=== PATIENT | male | born 1970 | race Two or more races ===

== ENCOUNTER 2023-10-16 19:19 | Inpatient (IN) | payer BC, OTHER ==
[~2023-10-16] VITALS: Ht 182.9 cm; Wt 96.3 kg
[2023-10-16] MEDS ORDERED: KETOROLAC TROMETHAMINE 15 MG/ML VIAL ONE (19:58)
[2023-10-16] MEDS: KETOROLAC TROMETHAMINE 15 MG/ML VIAL IM ONE (19:59)
[2023-10-16 21:18] LABS: BASOPHILS % (AUTO) 0.4 % (0.0-2.0); EOSINOPHILS # (AUTO) 0.1 K/uL (0.0-0.7); EOSINOPHILS % (AUTO) 0.7 % (0.0-6.0); HEMATOCRIT 43 % (39-51); HEMOGLOBIN 14.6 g/dL (13.5-17.5); LYMPHOCYTES # (AUTO) 0.8 K/uL (0.8-4.8); LYMPHOCYTES % (AUTO) 7.3 % (20.0-44.0); MEAN CORPUSCULAR HEMOGLOBIN 31 PG (26.0-33.0); MEAN CORPUSCULAR HGB CONC 34 g/dl (31.0-36.0); MEAN CORPUSCULAR VOLUME 91 fL (80-96); MONOCYTES # (AUTO) 0.3 K/uL (0.1-1.30); MONOCYTES % (AUTO) 2.9 % (2.0-12.0); NEUTROPHILS # (AUTO) 10.2 K/uL (1.8-8.9); NEUTROPHILS % (AUTO) 88.7 % (43.0-81.0); PLATELET COUNT (AUTO) 227 K/uL (150-450); RED BLOOD CELL COUNT(AUTO) 4.75 MIL/uL (4.5-6.0); RED CELL DISTRIBUTION WIDTH 12.9 % (11.5-15.0); WHITE BLOOD COUNT (AUTO) 11.5 K/uL (4.3-11.0)
[2023-10-16 21:25] LABS: CALCIUM, SERUM 8.8 mg/dL (8.5-10.1); CREATININE 1.1 mg/dL (0.6-1.3); POTASSIUM 4.1 mmol/L (3.5-5.1)
[2023-10-16 21:44] LABS: INR 1.02 (0.91-1.10); PARTIAL THROMBOPLASTIN TIME 22.5 SEC (24.3-34.3); PROTHROMBIN TIME 10.5 SECS (9.2-11.1)
[2023-10-16] MEDS ORDERED: MORPHINE SULFATE INJ 4 MG/ML DISP.SYRIN ONE (22:09)
[2023-10-16] MEDS: MORPHINE SULFATE INJ 2 MG/ML DISP.SYRIN IV ONE (22:13)
[2023-10-16] MEDS ORDERED: ONDANSETRON HCL/PF 4 MG/2 ML VIAL IVP PRN (22:30)
[2023-10-16 23:00] VITALS: BP 125/74; TEMP 98.8; O2SAT 96
[2023-10-16 23:50] VITALS: BP 125/74; TEMP 98.8; O2SAT 96
[2023-10-16] MEDS: IV D5/0.45 NACL 1,000 ML IV PRN (23:50)
[2023-10-17] MEDS: MORPHINE SULFATE INJ 4 MG/ML DISP.SYRIN IV PRN (06:07)
[2023-10-17 06:55] LABS: BASOPHILS % (AUTO) 0.2 % (0.0-2.0); EOSINOPHILS % (AUTO) 0.5 % (0.0-6.0); HEMATOCRIT 40 % (39-51); HEMOGLOBIN 13.6 g/dL (13.5-17.5); LYMPHOCYTES # (AUTO) 0.8 K/uL (0.8-4.8); LYMPHOCYTES % (AUTO) 9.1 % (20.0-44.0); MEAN CORPUSCULAR HEMOGLOBIN 31 PG (26.0-33.0); MEAN CORPUSCULAR HGB CONC 35 g/dl (31.0-36.0); MEAN CORPUSCULAR VOLUME 91 fL (80-96); MONOCYTES # (AUTO) 0.7 K/uL (0.1-1.30); MONOCYTES % (AUTO) 7.1 % (2.0-12.0); NEUTROPHILS # (AUTO) 7.8 K/uL (1.8-8.9); NEUTROPHILS % (AUTO) 83.1 % (43.0-81.0); PLATELET COUNT (AUTO) 216 K/uL (150-450); RED BLOOD CELL COUNT(AUTO) 4.36 MIL/uL (4.5-6.0); RED CELL DISTRIBUTION WIDTH 13.2 % (11.5-15.0); WHITE BLOOD COUNT (AUTO) 9.3 K/uL (4.3-11.0)
[2023-10-17 07:00] VITALS: BP 131/82; TEMP 99.7; O2SAT 95
[2023-10-17 07:05] LABS: THYROID STIMULATING HORMONE 0.87 uIU/mL (0.358-3.74)
[2023-10-17 07:17] LABS: CALCIUM, SERUM 8.8 mg/dL (8.5-10.1); CREATININE 1.1 mg/dL (0.6-1.3); MAGNESIUM 1.8 mg/dL (1.8-2.4); POTASSIUM 3.9 mmol/L (3.5-5.1)
[2023-10-17] MEDS: PANTOPRAZOLE 40 MG VIAL IV SCH (09:19)
[2023-10-17 16:00] VITALS: BP 134/87; TEMP 98.6; O2SAT 96
[2023-10-17 20:00] VITALS: BP 127/87; TEMP 98.8; O2SAT 98
[2023-10-17] MEDS: HYDROCODONE/APAP 5/325MG TABLET PO ONE (20:19)
[2023-10-17] MEDS: ENOXAPARIN SODIUM 40 MG/0.4 ML DISP.SYRIN SQ SCH (20:32)
[2023-10-17] MEDS ORDERED: ENOXAPARIN SODIUM 40 MG/0.4 ML DISP.SYRIN SQ SCH (21:00)
[2023-10-18 06:28] LABS: BASOPHILS % (AUTO) 0.3 % (0.0-2.0); EOSINOPHILS # (AUTO) 0.1 K/uL (0.0-0.7); EOSINOPHILS % (AUTO) 1.3 % (0.0-6.0); HEMATOCRIT 39 % (39-51); HEMOGLOBIN 13.5 g/dL (13.5-17.5); LYMPHOCYTES # (AUTO) 1.1 K/uL (0.8-4.8); LYMPHOCYTES % (AUTO) 11.8 % (20.0-44.0); MEAN CORPUSCULAR HEMOGLOBIN 31 PG (26.0-33.0); MEAN CORPUSCULAR HGB CONC 34 g/dl (31.0-36.0); MEAN CORPUSCULAR VOLUME 90 fL (80-96); MONOCYTES # (AUTO) 0.7 K/uL (0.1-1.30); MONOCYTES % (AUTO) 7.6 % (2.0-12.0); NEUTROPHILS # (AUTO) 7.3 K/uL (1.8-8.9); PLATELET COUNT (AUTO) 188 K/uL (150-450); RED BLOOD CELL COUNT(AUTO) 4.36 MIL/uL (4.5-6.0); RED CELL DISTRIBUTION WIDTH 13.2 % (11.5-15.0); WHITE BLOOD COUNT (AUTO) 9.2 K/uL (4.3-11.0)
[2023-10-18 06:45] LABS: CALCIUM, SERUM 8.2 mg/dL (8.5-10.1); POTASSIUM 3.8 mmol/L (3.5-5.1)
[2023-10-18 08:00] VITALS: BP 117/72; TEMP 98.4; O2SAT 97
[2023-10-18] MEDS ORDERED: VANCOMYCIN 1 GM VIAL ONE (09:27)
[2023-10-18] MEDS ORDERED: BUPIVACAINE 0.25% 75 MG/30 ML VIAL ONE (09:27)
[2023-10-18] MEDS ORDERED: BUPIVACAINE 0.5 % PF 150 MG/30 ML VIAL ONE ×2 (09:27→13:29)
[2023-10-18] MEDS ORDERED: POLYMYXIN B SULFATE 0 UNITS ONE (09:28)
[2023-10-18] MEDS ORDERED: FAMOTIDINE/PF INJ 20 MG/2 ML VIAL IV ONE (13:28)
[2023-10-18] MEDS ORDERED: MIDAZOLAM HCL 2 MG/2ML VIAL ONE (13:28)
[2023-10-18] MEDS ORDERED: FENTANYL PF 250MCG/5ML AMPUL ONE (13:28)
[2023-10-18] MEDS ORDERED: ROCURONIUM BROMIDE 50 MG/5 ML ONE ×2 (13:28→13:57)
[2023-10-18] MEDS ORDERED: CITRIC ACID/SODIUM CITRATE (BICITRA)15 ML UDC ONE (13:29)
[2023-10-18] MEDS ORDERED: ACETAMINOPHEN 325 MG TABLET ONE (13:29)
[2023-10-18] MEDS ORDERED: TRANEXAMIC ACID 1,000 MG/10 ML VIAL ONE (14:11)
[2023-10-18] MEDS ORDERED: HYDROMORPHONE INJ 2 MG/ML DISP.SYRIN ONE (16:19)
[2023-10-18] MEDS ORDERED: LABETALOL HCL IV 100MG VIAL ONE (17:00)
[2023-10-18] MEDS ORDERED: ACETAMINOPHEN ES 500 MG TABLET PO PRN (17:30)
[2023-10-18] MEDS: oxyCODONE IR immediate release 5 MG TABLET PO PRN (19:54)
[2023-10-18 20:14] VITALS: BP 140/68; TEMP 98.8; O2SAT 95
[2023-10-18] MEDS: CEFAZOLIN 2 GM in IV D5W 100 ML IV SCH (21:33)
[2023-10-19 06:41] LABS: BASOPHILS % (AUTO) 0.1 % (0.0-2.0); HEMATOCRIT 37 % (39-51); HEMOGLOBIN 12.5 g/dL (13.5-17.5); LYMPHOCYTES # (AUTO) 0.8 K/uL (0.8-4.8); LYMPHOCYTES % (AUTO) 6.3 % (20.0-44.0); MEAN CORPUSCULAR HEMOGLOBIN 30 PG (26.0-33.0); MEAN CORPUSCULAR HGB CONC 34 g/dl (31.0-36.0); MEAN CORPUSCULAR VOLUME 90 fL (80-96); MONOCYTES # (AUTO) 0.9 K/uL (0.1-1.30); MONOCYTES % (AUTO) 7.2 % (2.0-12.0); NEUTROPHILS # (AUTO) 10.6 K/uL (1.8-8.9); NEUTROPHILS % (AUTO) 86.4 % (43.0-81.0); PLATELET COUNT (AUTO) 219 K/uL (150-450); RED BLOOD CELL COUNT(AUTO) 4.12 MIL/uL (4.5-6.0); RED CELL DISTRIBUTION WIDTH 13.1 % (11.5-15.0); WHITE BLOOD COUNT (AUTO) 12.2 K/uL (4.3-11.0)
[2023-10-19 06:52] LABS: CALCIUM, SERUM 8.2 mg/dL (8.5-10.1); CREATININE 1.1 mg/dL (0.6-1.3); POTASSIUM 3.8 mmol/L (3.5-5.1)
[2023-10-19 07:00] VITALS: BP 121/89; TEMP 97.3; O2SAT 93
[2023-10-19] MEDS: ENOXAPARIN SODIUM 40 MG/0.4 ML DISP.SYRIN SQ SCH (08:06)
[2023-10-19] MEDS: PANTOPRAZOLE 40 MG TABLET.DR PO SCH (08:06)
[2023-10-19] MEDS: DOCUSATE SODIUM 100 MG CAPSULE PO SCH (08:12)
[2023-10-19 16:00] VITALS: BP 133/84; TEMP 98.2; O2SAT 93
[2023-10-19 20:00] VITALS: BP 140/90; TEMP 98.2; O2SAT 95
[2023-10-19 20:05] VITALS: BP 140/90; TEMP 98.2; O2SAT 95
[2023-10-20 08:00] VITALS: BP 129/86; TEMP 98.6; O2SAT 95
[2023-10-20] MEDS: LACTULOSE 10 G/15 ML UDC (PYXIS) PO SCH (12:48)
[2023-10-20 16:00] VITALS: BP 127/84; TEMP 98.1; O2SAT 95
[2023-10-20 20:00] VITALS: BP 123/83; TEMP 98.4; O2SAT 96
[2023-10-20] MEDS: oxyCODONE IR immediate release 5 MG TABLET PO PRN (23:35)
[2023-10-21 07:30] VITALS: BP 131/91; TEMP 98.2; O2SAT 95
[2023-10-21 16:00] VITALS: BP 122/63; TEMP 98.8; O2SAT 100
[2023-10-21 20:00] VITALS: BP 136/93; TEMP 97.9; O2SAT 94
[2023-10-22 08:00] VITALS: BP 127/88; TEMP 98.2; O2SAT 98
[2023-10-22] MEDS: LACTULOSE 10 G/15 ML UDC (PYXIS) PO SCH (08:56)
[2023-10-22] MEDS ORDERED: ENOX40DI SQ (09:22)
[2023-10-22] MEDS ORDERED: DOCU100C36 PO (09:22)
[2023-10-22] MEDS ORDERED: OXYC5CAP18 PO (09:22)
[2023-10-22] MEDS ORDERED: LACTULOSE 10 G/15 ML UDC (PYXIS) PO PRN (15:30)
[2023-10-22 20:00] VITALS: BP 136/93; TEMP 98.1; O2SAT 95
[2023-10-23 07:00] VITALS: BP 125/98; TEMP 98.6; O2SAT 96
== END 2023-10-23 14:53 | DRG 482 ==
LOC: ER 19:22 → MED 21:38
PROVIDERS: ATTEND Internal Medicine
PROC: 0QS706Z Reposition Left Upper Femur with Intramedullary Internal Fixation Device, Open Approach (ICD-10-PCS; principal; 2023-10-18)
DX: S72.142A Displaced intertrochanteric fracture of left femur, initial encounter for closed fracture (principal); S52.122A Displaced fracture of head of left radius, initial encounter for closed fracture; D72.829 Elevated white blood cell count, unspecified; V00.831A Fall from motorized mobility scooter, initial encounter; Y92.9 Unspecified place or not applicable; K59.00 Constipation, unspecified
CPT/HCPCS: 36415; 71045-TC; 71111-TC; 72192-TC; 73080-TC; 73090-TC; 73110; 73502; 73552; 73564-TC; 80048-TC; 80061-TC; 83735-TC; 84100-TC; 84443-TC; 85025-TC; 85730-TC; 86850-TC; 97110-TC; 97116-TC; 97530-TC; 97535-TC; A4223; A4565; A6209; A6253; C1713; G0378; J0690; J1100; J1170; J1650; J1885; J2250; J2270; J2405; J2470; J2704; J3010; J3370; J3490; J7030; J7060